=== PATIENT | female | born 1990 | race Caucasian/White ===

== ENCOUNTER → 2018-04-23 | Outpatient (CLI) | payer BC ==
[~2018-04-23] MED LIST: ACHYD1T PO; ACYC-109; CEPH500C PO; DCS100C PO; IBP800T PO; PREN1TAB64 PO; PRM25T PO; PROM25SU10 PR; VALA500T4 PO; [UNRECOGNIZED DRUG - OTHER]
--- NOTE | 2018-04-23 09:16 | Diagnostic Imaging Report ---
INDICATION: Left foot pain. AP, oblique and lateral views of the left foot are obtained. FINDINGS: There is mild posterior calcaneal spurring. No acute fracture or dislocation is identified. No abnormal lytic or sclerotic focus is seen, and there is no radiopaque foreign body. IMPRESSION: No acute abnormality. Dictated by: Dictated on workstation # [id number]
== END ==
LOC: RAD 08:45
PROVIDERS: ATTEND Nurse Practitioner Family
DX: M79.672 Pain in left foot (principal)
CPT/HCPCS: 73630